=== PATIENT | female | born 1980 | race Caucasian/White ===

== ENCOUNTER 2017-04-10 00:18 | Emergency (ER) | payer SELFPAY ==
[2017-04-10] MEDS ORDERED: TORAdol 30 mg Injection IM ONE (00:46)
[2017-04-10] MEDS ORDERED: TORAdol 30 mg Injection ONE (00:49)
[2017-04-10] MEDS ORDERED: DELTASONE 20 MG PO ONE (00:54)
[2017-04-10] MEDS ORDERED: DELTASONE 20 MG ONE (01:06)
--- NOTE | 2017-04-10 01:29 | ERPHSYRPT ---
- History of Present Illness Time Seen by Provider: 04/10/17 00:45 Source: patient Exam Limitations: other Patient Subjective Stated Complaint: Back Pain Triage Nursing Assessment: Pt states she fell on ice approximately 24 hours ago , fell on her coccyx and now states pain in coccyx, worse with movement. Pt able to ambulate with steady gait but states pain is worse with movement. Pt denies other injuries from fall. Pt is A&O x4, no distress noted, skin pwd. Physician History: PATIENT STATES SHE SLIPPED ONTO ICE AND FELL SUSTAINED INJURY TO HER RIGHT LOWER BACK AND RIGHT HIP 24 HOURS AGO. HAS ASSOCIATED BRUISING OVER LEFT HIP. TOOK MOTRIN AND NORCO AT HOME FOR PAIN.ALS COMPLAINS OF RASH OVER EXTREMITIES Occurred: yesterday Reason for Fall: slipped Injuries/Pain Location: back, lower extremity Loss of Consciousness: no loss of consciousness Quality: sharpness Severity of Pain-Max: moderate Severity of Pain-Current: moderate Modifying Factors: Improves With: movement Associated Symptoms (Fall): back pain, muscle spasms Allergies/Adverse Reactions: Penicillins Allergy (Mild, Verified 04/10/17 00:38) Hives Home Medications: Citalopram Hydrobromide 20 mg* [ceLEXa 20 MG] 20 mg PO DAILY 04/10/17 [ History] Hx Tetanus, Diphtheria Vaccination/Date Given: Yes Hx Influenza Vaccination/Date Given: No Hx Pneumococcal Vaccination/Date Given: No Immunizations Up to Date: No - Review of Systems Constitutional: No Fever, No Chills Eyes: No Symptoms Ears, Nose, & Throat: No Symptoms Respiratory: No Cough, No Dyspnea Cardiac: No Chest Pain, No Edema, No Syncope Abdominal/Gastrointestinal: No Symptoms, No Abdominal Pain, No Nausea, No Vomiting, No Diarrhea Genitourinary Symptoms: No Symptoms, No Dysuria Musculoskeletal: Injury, Joint Pain, No Back Pain, No Neck Pain Skin: No Rash Neurological: Irritability, No Dizziness, No Focal Weakness, No Sensory Changes Psychological: No Symptoms Endocrine: No Symptoms All Other Systems: Reviewed and Negative - Past Medical History Pertinent Past Medical History: No Neurological History: No Pertinent History ENT History: No Pertinent History Cardiac History: No Pertinent History Respiratory History: No Pertinent History Endocrine Medical History: No Pertinent History Musculoskeletal History: No Pertinent History GI Medical History: No Pertinent History History: No Pertinent History Psycho-Social History: Anxiety, Depression Female Reproductive Disorders: No Pertinent History - Past Surgical History Past Surgical History: Yes Neuro Surgical History: No Pertinent History Cardiac: No Pertinent History Respiratory: No Pertinent History Gastrointestinal: Appendectomy, Cholecystectomy Genitourinary: No Pertinent History Musculoskeletal: No Pertinent History Female Surgical History: Hysterectomy - Social History Smoking Status: Current every day smoker How long have you smoked: 18 years Exposure to second hand smoke: Yes Drug Use: none Patient Lives Alone: No - Female History Hx Now: No - Nursing Vital Signs Nursing Vital Signs: Initial Vital Signs Temperature 98.0 F 04/10/17 00:30 Pulse Rate 95 H 04/10/17 00:30 Respiratory Rate 15 04/10/17 00:30 Blood Pressure 127/74 04/10/17 00:30 O2 Sat by Pulse Oximetry 100 04/10/17 00:30 Pain Scale Pain Intensity 8 - [place] Coma Score Best Eye Response ([place]): (4) open spontaneously Best Verbal Response ([place]): (5) oriented Best Motor Response ([place]): (6) obeys commands [place] Total: 15 - Physical Exam General Appearance: no apparent distress, alert Head Injury: no evidence of injury Eye Exam: PERRL/EOMI ENT Exam: airway nml Neck Exam: normal inspection, No tenderness Respiratory/Chest Exam: normal breath sounds, No chest tenderness, No respiratory distress Cardiovascular Exam: normal heart sounds, regular rate/rhythm Gastrointestinal Exam: soft, normal bowel sounds, No tenderness, No distention, No guarding, No ecchymosis Back Exam: normal inspection, other (TENDERNESS, LUMBAR AND SACRILIAC TENDERNESS ,FULL RANGE OF MOTION RIGHT HIP, ), No vertebral tenderness Extremity Exam: normal range of motion, pelvis stable, pain with movement, tenderness (OVER THE RIGHT GREATER TROCHANTER AND PROMIXMAL MID THIGH WITH SLIGHT ECCHYMOSIS.), No deformities Peripheral Pulses: carotid (R): 2+, dorsalis-pedis (R): 2+, dorsalis-pedis (L): 2+ Neurologic Exam: alert, oriented x 3, cooperative, sensation nml, No motor deficits Skin Exam: normal color, warm, dry, other (DIFFUSE LINEAR ERYTHRMATOUS RAISED LESIONS OVER THE SKIN RIGHT PARASPINAL LUMBAR EXTENDING OV ER BUTTOCK. ERYTHEMATOUS LESION OVE LEFT FOREARM) SpO2: 100 Oxygen Delivery: Room Air - Radiology Exams Right Femur X-ray Interpretation: Interpreted by me (NO FRACTUARE) Pelvis X-ray Interpretation: Interpreted by me (NO EVIDENCE OF FRACTURE) Ordered Tests: Active Orders 24 hr Category Date Time Status FEMUR Stat Exams 04/10/17 00:53 Ordered LUMBAR COMPLETE (MIN 4 VIEWS) Stat Exams 04/10/17 00:48 Ordered PELVIS (1 OR 2 VIEWS) Stat Exams 04/10/17 00:49 Ordered Medication Summary Discontinued Medications Generic Name Dose Route Start Last Admin Trade Name Thiago PRN Reason Stop Dose Admin Ketorolac Tromethamine 60 mg 04/10/17 00:46 04/10/17 00:50 Toradol 30 Mg Injection IM 04/10/17 00:47 60 mg STAT ONE Administration Ketorolac Tromethamine Confirm 04/10/17 00:49 Toradol 30 Mg Injection Administered 04/10/17 00:50 Dose 60 mg .ROUTE .STK-MED ONE Prednisone 60 mg 04/10/17 00:54 04/10/17 01:33 Deltasone 20 Mg PO 04/10/17 00:55 60 mg STAT ONE Administration Prednisone Confirm 04/10/17 01:06 Deltasone 20 Mg Administered 04/10/17 01:07 Dose 60 mg .ROUTE .STK-MED ONE - Progress Progress Note: 04/10/17 01:50 ADMINISTERED TORADOL 60MG IM AND PREDNISONE 60MG ORALLY 04/10/17 01:50 Counseled pt/family regarding: diagnosis, need for follow-up, rad results - Departure Time of Disposition: 02:12 Departure Disposition: Home Clinical Impression: RIGHT HIP/THIGH CONTUSION Condition: Stable Critical Care Time: No Referrals: CHION MORALES [Primary Care Provider] - Additional Instructions: FOLLOWUP WITH YOUR PRIMARY CARE PROVIDER THIS WEEK. PREDNISONE 20MG, 2 TABLETS DAILY FOR 5 DAYS. ULTRAM 50MG EVERY 4-6 HOURS NEEDED FOR PAIN. NORFLEX 100MG TWICE DAILY FOR 5 DAYS. APPLY ICE OVER HIP AND THIGH SWELLING EVERY 4 HOURS, 30 MINUTES FOR 24 HOURS.TAKE OVER THE COUNTER BENADRYL 25-50MG EVERY 6 HOURS FOR ITCHING. Prescriptions: Tramadol HCl 50 mg [Ultram 50 mg] 50 mg PO Q4HPRN PRN #15 tablet PRN Reason: Pain Orphenadrine Citrate 100 mg [Norflex 100 MG Tablet] 100 mg PO BID PRN 10 Days #10 tab Prednisone 20 mg [Deltasone 20 mg] 2 tab PO DAILY #10 tablet
[2017-04-10 02:21] VITALS: BP 106/58; PULSE 88; O2SAT 97
--- NOTE | 2017-04-10 06:52 | XRAY ---
Indication: Pain following fall. Comparison: None AP pelvis obtained. No bony, articular, or soft tissue abnormalities.
--- NOTE | 2017-04-10 06:52 | XRAY ---
Indication: Pain following fall. Comparison: None 2 views of the right femur obtained. No bony, articular, or soft tissue abnormalities.
--- NOTE | 2017-04-10 06:55 | XRAY ---
Indication: Pain following fall. Comparison: None 5 views of the lumbar spine demonstrates 5 lumbar vertebral segments with minimal levoscoliosis, minimal L5-S1 disc space narrowing, and mild bilateral L5-S1 degenerative facet arthropathy. No acute fracture, subluxation, or pars interarticularis defect. Previous cholecystectomy. Impression: Nonacute lumbar spine with chronic features.
== END 2017-04-10 02:37 | disposition home or self-care (01) ==
LOC: ED 00:18
DX: S70.01XA Contusion of right hip, initial encounter (principal); S70.11XA Contusion of right thigh, initial encounter; M54.5 Low back pain; M62.830 Muscle spasm of back; W00.0XXA Fall on same level due to ice and snow, initial encounter; F41.8 Other specified anxiety disorders; Z79.899 Other long term (current) drug therapy; T14.8XXA Other injury of unspecified body region, initial encounter; W57.XXXA Bitten or stung by nonvenomous insect and other nonvenomous arthropods, initial encounter; Y93.55 Activity, bike riding
CPT/HCPCS: 72110; 72170; 73552; 96372; 99284; J1885; A9270-GY

== ENCOUNTER 2017-10-31 18:12 | Emergency (ER) | payer OTHER ==
[2017-10-31 18:29] VITALS: O2SAT 98
[2017-10-31] MEDS ORDERED: TORAdol 30 mg Injection ONE (18:47)
[2017-10-31] MEDS: TORAdol 30 mg Injection IM ONE (18:50)
--- NOTE | 2017-10-31 18:56 | ERPHSYRPT ---
- History of Present Illness Source: patient Exam Limitations: no limitations Patient Subjective Stated Complaint: pt here for swelling to left side of jaw for couple days getting worse, Triage Nursing Assessment: pt has swelling to left side of face, pt denies tootheache, Timing/Duration: yesterday Severity: severe Associated Symptoms: headaches Hx Tetanus, Diphtheria Vaccination/Date Given: Yes Hx Influenza Vaccination/Date Given: No Hx Pneumococcal Vaccination/Date Given: No Immunizations Up to Date: Yes <NISREEN GALARZA - Last Filed: 10/31/17 19:00> <RAFA AMEZQUITA - Last Filed: 10/31/17 20:25> - History of Present Illness Time Seen by Provider: 10/31/17 18:54 Physician History: 37-year-old female came to the emergency room with her 2 days duration of development of left side jaw pain radiating to the left side of the scalp, head and left side of the neck. Patient denies any toothache or difficulty in swallowing. Patient states that she feels little bit feverish but denies any chills, nausea, vomiting. Patient states that she never had this problem before. But she states that 2 weeks ago. She has some injury on her left side of the jaw. (GEOVANNI,NISREEN) Allergies/Adverse Reactions: Penicillins Allergy (Mild, Verified 10/31/17 18:29) Hives - Review of Systems Constitutional: No Fever, No Chills Eyes: No Symptoms Ears, Nose, & Throat: No Symptoms, Mouth Swelling, Throat Pain, No Painful Swallowing Respiratory: No Cough, No Dyspnea Cardiac: No Chest Pain, No Edema, No Syncope Abdominal/Gastrointestinal: No Abdominal Pain, No Nausea, No Vomiting, No Diarrhea Genitourinary Symptoms: No Dysuria Musculoskeletal: No Back Pain, No Neck Pain Skin: No Rash Neurological: No Dizziness, No Focal Weakness, No Sensory Changes Psychological: No Symptoms Endocrine: No Symptoms All Other Systems: Reviewed and Negative <NISREEN GALARZA - Last Filed: 10/31/17 19:00> - Past Medical History Pertinent Past Medical History: No Neurological History: No Pertinent History ENT History: No Pertinent History Cardiac History: No Pertinent History Respiratory History: No Pertinent History Endocrine Medical History: No Pertinent History Musculoskeletal History: No Pertinent History GI Medical History: No Pertinent History History: No Pertinent History Psycho-Social History: Anxiety, Depression Female Reproductive Disorders: No Pertinent History - Past Surgical History Past Surgical History: Yes Neuro Surgical History: No Pertinent History Cardiac: No Pertinent History Respiratory: No Pertinent History Gastrointestinal: Appendectomy, Cholecystectomy Genitourinary: No Pertinent History Musculoskeletal: No Pertinent History Female Surgical History: Hysterectomy - Social History Smoking Status: Current every day smoker How long have you smoked: 18 years Exposure to second hand smoke: Yes Drug Use: none Patient Lives Alone: No - Female History Hx Last Menstrual Period: hyster Hx Now: No <GEOVANNINISREEN - Last Filed: 10/31/17 19:00> - Physical Exam General Appearance: no apparent distress, alert Eye Exam: PERRL/EOMI, eyes nml inspection Ears, Nose, Throat Exam: normal ENT inspection, TMs normal, pharynx normal, moist mucous membranes, other (left side mid jaw swelling) Neck Exam: normal inspection, non-tender, supple, full range of motion Respiratory Exam: normal breath sounds, lungs clear, No respiratory distress Cardiovascular Exam: regular rate/rhythm, normal heart sounds, normal peripheral pulses Gastrointestinal/Abdomen Exam: soft, normal bowel sounds, No tenderness, No mass Back Exam: normal inspection, normal range of motion, No CVA tenderness, No vertebral tenderness Extremity Exam: normal inspection, normal range of motion, pelvis stable Neurologic Exam: alert, oriented x 3, cooperative, normal mood/affect, nml cerebellar function, nml station & gait, sensation nml, No motor deficits Skin Exam: normal color, warm, dry, No rash Lymphatic Exam: No adenopathy SpO2: 98 Oxygen Delivery: Room Air <GEOVANNI - Last Filed: 10/31/17 19:00> - Nursing Vital Signs Nursing Vital Signs: Initial Vital Signs Temperature 9.2 F 10/31/17 18:25 Pulse Rate 110 H 10/31/17 18:25 Respiratory Rate 18 10/31/17 18:25 Blood Pressure 124/100 10/31/17 18:25 O2 Sat by Pulse Oximetry 98 10/31/17 18:25 Pain Scale Pain Intensity 8 - Radiology Exams Facial X-ray Interpretation: Other <IMER GALARZAYESH - Last Filed: 10/31/17 19:00> - Course Nursing assessment & vital signs reviewed: Yes <RAFA AMEZQUITA - Last Filed: 10/31/17 20:25> Ordered Tests: Active Orders 24 hr Category Date Time Status FACIAL BONES (MINIMUM 3 VIEWS) Stat Exams 10/31/17 19:00 Taken Medication Summary Discontinued Medications Generic Name Dose Route Start Last Admin Trade Name Thiago PRN Reason Stop Dose Admin Hydrocodone Bitart/Acetaminophen 1 tab 10/31/17 20:18 Commiskey 5/325 Mg PO 10/31/17 20:19 STAT ONE Ceftriaxone Sodium 1,000 mg 10/31/17 20:18 Rocephin 1000 Mg Inj IM 10/31/17 20:19 STAT ONE Ketorolac Tromethamine 60 mg 10/31/17 18:36 10/31/17 18:50 Toradol 30 Mg Injection IM 10/31/17 18:37 60 mg STAT ONE Administration Ketorolac Tromethamine Confirm 10/31/17 18:47 Toradol 30 Mg Injection Administered 10/31/17 18:48 Dose 60 mg .ROUTE .STK-MED ONE <NISREEN GALARZA - Last Filed: 10/31/17 19:00> - Progress Progress: unchanged Counseled pt/family regarding: diagnosis, need for follow-up, rad results <RAFA AMEZQUITA - Last Filed: 10/31/17 20:25> - Progress Progress Note: 10/31/17 20:19 I REVIEWED XRAY RESULTS WITH PT. NO ACUTE ILANA PROCESS. LEFT MANDIBULAR SOFT TISSUE SWELLING. PT STATES SHE HAS HAD KEFLEX MANY TIMES IN THE PAST WITHOUT ISSUES. (RAFA AMEZQUITA) <NISREEN GALARZA - Last Filed: 10/31/17 19:00> - Departure Time of Disposition: 20:23 Departure Disposition: Home Critical Care Time: No <RAFA AMEZQUITA - Last Filed: 10/31/17 20:25> - Departure Clinical Impression: Dental infection Condition: Stable Additional Instructions: FOLLOW UP WITH DENTIST TOMORROW FOR DEFINITIVE CARE. ADD IBUPROFEN FOR PAIN. Prescriptions: Hydrocodone/APAP 5/325 [Commiskey 5/325 mg] 1 each PO Q6H PRN PRN #10 tablet MDD 4 PRN Reason: Pain Cephalexin Mh 500 mg [Keflex 500 mg] 500 mg PO TID #21 capsule
[2017-10-31 20:01] VITALS: BP 115/83; PULSE 102
[2017-10-31] MEDS ORDERED: Rocephin 1000 MG INJ ONE (20:23)
[2017-10-31] MEDS ORDERED: NORCO 5/325 MG ONE (20:23)
[2017-10-31] MEDS: NORCO 5/325 MG PO ONE (20:28)
[2017-10-31] MEDS: Rocephin 1000 MG INJ IM ONE (20:30)
--- NOTE | 2017-11-01 08:39 | XRAY ---
Indication: Left jaw pain and swelling. Broken tooth. Comparison: None 4 views of the mandible demonstrates multiple bilateral dental amalgams and mild left mandible soft tissue swelling. No other bony, articular, or soft tissue abnormalities. Paranasal sinuses clear.
== END 2017-10-31 20:50 | disposition home or self-care (01) ==
LOC: ED 18:12
DX: K04.7 Periapical abscess without sinus (principal)
CPT/HCPCS: 70150; 96372; 99284; J0696; J1885; A9270-GY

== ENCOUNTER 2018-11-21 06:15 | Emergency (ER) | payer OTHER, BC | END 2018-11-21 08:24 | disposition home or self-care (01) | LOC: ED 06:15 ==